=== PATIENT | female | born 1940 | race Caucasian/White ===

== ENCOUNTER → 2016-09-22 | Outpatient (CLI) | payer MEDICARE, OTHER | END | disposition home or self-care (01) | LOC: RADPV 12:25 | PROVIDERS: ATTEND Orthopaedic Surgery | DX: M79.661 Pain in right lower leg (principal) | CPT/HCPCS: 93970 ==

== ENCOUNTER → 2017-05-14 | Outpatient (CLI) | payer MEDICARE, OTHER | END | disposition home or self-care (01) | LOC: RADPV 09:37 | PROVIDERS: ATTEND Orthopaedic Surgery | DX: I82.401 Acute embolism and thrombosis of unspecified deep veins of right lower extremity (principal); M76.71 Peroneal tendinitis, right leg | CPT/HCPCS: 93971 ==